=== PATIENT | female | born 1960 | race Caucasian/White ===

== ENCOUNTER → 2024-05-13 | Outpatient (REF) | payer MEDICARE, MEDICAID ==
[2024-05-13 18:49] LABS: APPEARANCE, URINE HAZY (CLEAR); BACTERIA, URINE AUTO NEGATIVE (NEGATIVE); BILIRUBIN, URINE AUTO NEGATIVE (NEGATIVE); BLOOD, URINE BLOOD NEGATIVE (NEGATIVE); COLOR, URINE AMBER (YELLOW); GLUCOSE, URINE (UA) AUTO NEGATIVE (NEGATIVE); KETONE, URINE AUTO TRACE mg/dL (NEGATIVE); LEUKOCYTE ESTERASE, URINE AUTO 2+ (NEGATIVE); MUCUS, URINE SMALL (NEGATIVE); NITRITE, URINE AUTO NEGATIVE (NEGATIVE); PROTEIN, URINE AUTO NEGATIVE (NEGATIVE); RBC, URINE AUTO 1 /HPF (0-3); SPECIFIC GRAVITY URINE AUTO 1.013 (1.002-1.035); SQUAMOUS EPITHELIAL CELL UR AU 2 /HPF (0-6); UROBILINOGEN, URINE AUTO 0.2 mg/dL (0.0-2.0); WBC, URINE AUTO 18 /HPF (0-3)
== END ==
LOC: M SMT 16:58
PROVIDERS: ATTEND Nurse Practitioner Family
DX: N39.46 Mixed incontinence (principal)

== ENCOUNTER 2025-05-26 10:51 | Day surgery (SDC) | payer MEDICARE, MEDICAID ==
[~2025-05-26] VITALS: Ht 165.1 cm; Wt 73.8 kg
[~2025-05-26 10:51] MED LIST: ALPR1TAB3 PO; CHLO125TA PO; ESTR62CR; FENO145T7 PO; GLIM4TAB5 PO; JANU100T PO; LIDOCAINE 2% 100 MG/5 ML SDV (FOR ANES.) As Ordered ONE; LOSA50TA28 PO; METF-838 PO; MUPI2OI; ONDANSETRON 4MG/2ML VIAL As Ordered ONE; PARO40TA2 PO; TRAZ-257 PO; TRUL10IN SC; VRAY1.5C PO; WELLTAB40 PO; ZYRT10TA12 PO; [UNRECOGNIZED DRUG - CODE] PO; ceFAZolin SOD 2 GM IV ONCE IV ONE; dexAMETHasone 4 MG/ML 1 ML VIAL As Ordered ONE
[2025-05-26] MEDS ORDERED: MIDAZOLAM INJ 2 MG/2 ML VIAL As Ordered ONE (10:58)
[2025-05-26] MEDS: LR 1,000 ML IV SCH (11:10)
[2025-05-26] MEDS: LIDOCAINE 2% 5 ML JELLY UROJET As Ordered ONE (11:19)
[2025-05-26] MEDS: IPRATROPIUM 0.5 MG/ALBUTEROL 2.5 MG INH SOL UD 3 ML NEB ONE (11:49)
[2025-05-26] MEDS ORDERED: SUCCINYLCHOLINE 100MG/5ML SYRINGE As Ordered ONE (12:04)
[2025-05-26] MEDS: ceFAZolin SOD 2 GM IV ONCE IV ONE (12:13)
[2025-05-26] MEDS ORDERED: ACETAMINOPHEN 1000MG/100ML IV BAG As Ordered ONE (12:15)
[2025-05-26 13:02] LABS: ALT/SGPT 31 U/L (7.0-40); AST/SGOT 25 U/L (<34); CALCIUM LEVEL 9.6 MG/DL (8.3-10.6); CARBON DIOXIDE LEVEL 27 MMOL/L (20-31); CHLORIDE LEVEL 102 MMOL/L (98-107); CREATININE FOR GFR 0.69 MG/DL (0.55-1.30); GLOMERULAR FILTRATION RATE > 90.0 (>45); POTASSIUM SERUM 4.4 MMOL/L (3.5-5.1); SODIUM LEVEL 138 MMOL/L (136-145)
[2025-05-26 13:40] VITALS: BP 189/88; TEMP 97.2; O2SAT 94
== END 2025-05-26 13:49 | disposition home or self-care (01) ==
LOC: M SDC 10:51
PROVIDERS: ATTEND Urology
DX: N39.3 Stress incontinence (female) (male) (principal); E11.9 Type 2 diabetes mellitus without complications; I10 Essential (primary) hypertension; F31.9 Bipolar disorder, unspecified; Z79.899 Other long term (current) drug therapy; Z79.84 Long term (current) use of oral hypoglycemic drugs; Z79.85 Long-term (current) use of injectable non-insulin antidiabetic drugs; Z88.5 Allergy status to narcotic agent; Z72.0 Tobacco use
CPT/HCPCS: 36415; 51715; 80053; J0131; J0330; J0688; J1100; J2250; J2405; J3010; L8606